=== PATIENT | male | born 1960 | race Caucasian/White ===

== ENCOUNTER → 2017-11-04 | Outpatient (CLI) | payer OTHER ==
[~2017-11-04] MED LIST: ENALAPRIL HCTZ; METOPROLOL SUCC50 MG
== END | disposition home or self-care (01) ==
LOC: NUCLEAR 07:00
DX: I25.10 Atherosclerotic heart disease of native coronary artery without angina pectoris (principal)

== ENCOUNTER 2020-04-04 08:02 | Outpatient (CLI) | payer OTHER | END 2020-04-04 08:21 | disposition home or self-care (01) | LOC: RAD 08:02 | PROVIDERS: ATTEND Orthopaedic Surgery | DX: M25.561 Pain in right knee (principal); M25.562 Pain in left knee; M77.30 Calcaneal spur, unspecified foot; M77.31 Calcaneal spur, right foot ==

== ENCOUNTER 2022-02-15 09:16 | Outpatient (CLI) | payer OTHER | END 2022-02-15 09:23 | disposition home or self-care (01) | LOC: RAD 09:16 | DX: Z01.810 Encounter for preprocedural cardiovascular examination (principal) ==

== ENCOUNTER 2023-02-16 07:39 | Outpatient (CLI) | payer OTHER | END 2023-02-16 07:48 | disposition home or self-care (01) | LOC: TOM 07:39 | PROVIDERS: ATTEND Internal Medicine Gastroenterology | DX: R10.10 Upper abdominal pain, unspecified (principal); R10.30 Lower abdominal pain, unspecified; K43.9 Ventral hernia without obstruction or gangrene; M54.59 Other low back pain; Z87.828 Personal history of other (healed) physical injury and trauma; G47.30 Sleep apnea, unspecified; G47.33 Obstructive sleep apnea (adult) (pediatric); Z12.11 Encounter for screening for malignant neoplasm of colon; N41.0 Acute prostatitis; I73.9 Peripheral vascular disease, unspecified; Z76.0 Encounter for issue of repeat prescription ==

== ENCOUNTER 2024-01-05 19:16 | Emergency (ER) | payer OTHER ==
[~2024-01-05] VITALS: Ht 162.6 cm; Wt 112.0 kg
[2024-01-05] MEDS ORDERED: TOPROL XL25 M1 (20:42)
[2024-01-05] MEDS ORDERED: ORPHENADRINE CITRATE 30 MG/ML AMPUL IM ONE (23:15)
[2024-01-05] MEDS ORDERED: KETOROLAC TROMETHAMINE 60 MG VIAL IM ONE (23:15)
[2024-01-06] MEDS ORDERED: OxyCODONE HCL/APAP UD (PERCOCET) PO STA (04:05)
== END 2024-01-06 04:25 | disposition home or self-care (01) ==
LOC: ER 19:16
DX: M54.50 Low back pain, unspecified (principal); I10 Essential (primary) hypertension
CPT/HCPCS: 72131; 96372; 99284; J1885; J2360; Q9965

== ENCOUNTER 2024-06-27 06:46 | Inpatient (IN) | payer OTHER ==
[~2024-06-27] VITALS: Ht 152.4 cm; Wt 86.6 kg
[~2024-06-27 06:46] MED LIST changes: +PLAVIX75 MG; +TOPROL XL25 M1
[2024-06-27] MEDS ORDERED: IRBESARTAN-HCT1 EACH (07:04)
[2024-06-27 08:17] LABS: HEMOGLOBIN 16.2 g/dL (13-16.00); MEAN CELL VOLUME 87.5 fL (80.0-100.00); MEAN CORPUSCULAR HEMOGLOBIN 30.2 pg (27.00-32.0); MEAN CORPUSCULAR HGB CONC 34.5 g/dl (32.0-36.0); PLATELET COUNT 221 K/uL (150-450); RED BLOOD COUNT 5.37 M/uL (4.00-6.00); RED CELL DISTRIBUTION WIDTH 15.3 % (11.5-14.5)
[2024-06-27 08:30] LABS: INR 1.12; PROTHROMBIN TIME 12.1 SECONDS (9.0-11.5)
[2024-06-27 08:38] LABS: ALBUMIN 3.4 gm/dL (3.4-5.0); BILIRUBIN TOTAL 1.22 mg/dL (0.3-1.2); CALCIUM 9.4 mg/dL (8.5-10.1); CREATININE SERUM 0.83 mg/dL (0.70-1.30); GFR 93.88; POTASSIUM 4.57 mEq/L (3.5-5.1); TOTAL PROTEIN 7.4 gm/dL (6.4-8.2)
[2024-06-27] MEDS ORDERED: CLONIDINE HCL 0.1 MG TABLET PO ONE (09:03)
[2024-06-27] MEDS ORDERED: cloNIDine HCL 0.2 MG TABLET PO STA (09:06)
[2024-06-27 09:20] LABS: PH,URINE 5.5 (5.0-8.0); URINE APPEARANCE Clear; URINE BILIRRUBIN Negative (NEGATIVE); URINE BLOOD Negative; URINE COLOR Yellow; URINE GLUCOSE Negative (NEGATIVE); URINE KETONE Negative (NEGATIVE); URINE LEUKOCYTE Negative; URINE NITRATE Negative; URINE PROTEIN Negative (NEGATIVE); URINE UROBILINOGEN 0.2 E.U./dl
[2024-06-27 09:36] LABS: URINE BACTERIA 3.7 uL (0.0-1933); URINE CAST 0.15 uL (0.0-1.40); URINE EPITHELIAL CELLS 0.6 uL (0.0-38.8)
[2024-06-27] MEDS ORDERED: DEXAMETHASONE SODIUM PHOSPHATE 4 MG/ML VIAL IV STA (11:25)
[2024-06-27] MEDS ORDERED: DEXAMETHASONE SODIUM PHOSPHATE 4 MG/ML VIAL ONE ×2 (11:48→12:00)
[2024-06-27] MEDS ORDERED: LABETALOL HCL 100 MG/20 ML ML ONE (18:01)
[2024-06-27] MEDS ORDERED: LABETALOL HCL 100 MG/20 ML ML IV STA (18:07)
[2024-06-27] MEDS ORDERED: NITROGLYCERIN IN 5 % DEXTROSE 250 ML IV SCH (19:26)
[2024-06-27] MEDS ORDERED: ATORVASTATIN CALCIUM 40 MG TABLET PO SCH (19:26)
[2024-06-27] MEDS ORDERED: ACETAMINOPHEN 500 MG GEL..CAP PO PRN (19:30)
[2024-06-27] MEDS ORDERED: ONDANSETRON HCL 4 MG in 0.9 % SODIUM CHLORIDE 50 ML IV PRN (19:30)
[2024-06-27] MEDS ORDERED: 0.9 % SODIUM CHLORIDE 1,000 ML IV SCH (19:30)
[2024-06-27] MEDS ORDERED: NITROGLYCERIN IN 5 % DEXTROSE 50 MG/250 ML BOTTLE IV ONE (19:49)
[2024-06-28] MEDS ORDERED: NITROGLYCERIN IN 5 % DEXTROSE 250 ML IV SCH (06:45)
[2024-06-28] MEDS ORDERED: FAMOTIDINE/PF 20 MG in 0.9 % SODIUM CHLORIDE 8 ML IV PUSH SCH (09:00)
[2024-06-28] MEDS ORDERED: CLOPIDOGREL BISULFATE 75 MG TABLET PO SCH (09:00)
[2024-06-28] MEDS ORDERED: METOPROLOL SUCCINATE 25 MG TAB.SR.24H PO SCH (09:00)
[2024-06-28] MEDS ORDERED: LOSARTAN POTASSIUM 50 MG TABLET PO SCH (19:57)
[2024-06-29] MEDS ORDERED: ISOSORBIDE MONONITRATE 30 MG TABLET PO SCH (09:00)
[2024-06-29] MEDS ORDERED: LOSARTAN POTASSIUM 100 MG TABLET PO SCH (09:00)
[2024-06-29] MEDS ORDERED: FAMOTIDINE/PF 20 MG in 0.9 % SODIUM CHLORIDE 8 ML IV PUSH SCH (21:00)
[2024-06-30] MEDS ORDERED: AMLODIPINE BESYLATE 10 MG TABLET PO SCH (09:00)
[2024-06-30] MEDS ORDERED: hydrALAZINE HCL 25 MG TABLET PO SCH (09:00)
[2024-06-30] MEDS ORDERED: FAMOTIDINE/PF 20 MG/2 ML VIAL ONE (20:47)
[2024-07-01] MEDS ORDERED: ENALAPRILAT DIHYDRATE 1.25 MG/ML VIAL IV PRN (13:45)
[2024-07-01] MEDS ORDERED: hydrALAZINE HCL 50 MG TABLET PO SCH (17:00)
[2024-07-01] MEDS ORDERED: FAMOTIDINE/PF 20 MG/2 ML VIAL ONE (20:19)
[2024-07-03] MEDS ORDERED: hydrALAZINE HCL 50 MG TABLET PO SCH (01:00)
[2024-07-03] MEDS ORDERED: FAMOTIDINE/PF 20 MG/2 ML VIAL ONE (08:16)
[2024-07-03] MEDS ORDERED: hydrALAZINE HCL 50 MG,hydrALAZINE HCL 25 MG PO SCH (09:00)
[2024-07-03] MEDS ORDERED: DOXAZOSIN MESYLATE 2 MG TABLET PO SCH (21:00)
[2024-07-03] MEDS ORDERED: FAMOtidine 20 MG TABLET PO SCH (21:00)
== END 2024-07-03 10:54 | disposition home or self-care (01) | DRG 65 ==
LOC: ER 06:46 → ICU-2 19:40 → ICU 19:40 → MEDJ 06-30 10:28
PROVIDERS: General Practice; ADMIT Internal Medicine; ATTEND Internal Medicine
PROC: BW28ZZZ Computerized Tomography (CT Scan) of Head (ICD-10-PCS; principal; 2024-06-27)
PROC: BW38ZZZ Magnetic Resonance Imaging (MRI) of Head (ICD-10-PCS; 2024-06-27)
PROC: B345ZZZ Ultrasonography of Bilateral Common Carotid Arteries (ICD-10-PCS; 2024-06-27)
PROC: B24BZZZ Ultrasonography of Heart with Aorta (ICD-10-PCS; 2024-06-27)
PROC: 4A12X4Z Monitoring of Cardiac Electrical Activity, External Approach (ICD-10-PCS; 2024-07-02)
DX: I63.81 Other cerebral infarction due to occlusion or stenosis of small artery (principal); I16.9 Hypertensive crisis, unspecified; I69.354 Hemiplegia and hemiparesis following cerebral infarction affecting left non-dominant side; I10 Essential (primary) hypertension; R47.01 Aphasia; G47.33 Obstructive sleep apnea (adult) (pediatric)
CPT/HCPCS: 70544